=== PATIENT | male | born 1965 | race Caucasian/White ===

== ENCOUNTER → 2019-12-24 15:22 | Outpatient (BNVA) | payer MEDICAID, SELFPAY | PROVIDERS: Visit Provider Nurse Practitioner Family | DX: J11.1 Influenza due to unidentified influenza virus with other respiratory manifestations (principal) | CPT/HCPCS: 87804 ==

== ENCOUNTER → 2020-05-12 14:18 | Outpatient (BNVA) | payer MEDICAID, SELFPAY | PROVIDERS: Visit Provider Family Medicine | DX: Z86.11 Personal history of tuberculosis (principal); R05 Cough; M54.5 Low back pain; M79.7 Fibromyalgia; J32.0 Chronic maxillary sinusitis | CPT/HCPCS: 71046 ==

== ENCOUNTER 2020-05-26 10:55 | Outpatient (CLI) | payer MEDICAID, SELFPAY ==
--- NOTE | 2020-05-26 11:00 | MR_ITS ---
WS: [id number] MRI LUMBAR SPINE NONCONTRAST TECHNIQUE: Sagittal T1, T2 and STIR imaging. Axial T1 and T2 imaging. CLINICAL INFORMATION: R29.898 Other symptoms and signs involving the musculoske... COMPARISON: None. FINDINGS: Mild lumbar curve. No acute compression. Pedicle screw fixation L4-S1 with interbody fusion grafts. M ild disc bulging worse at L2-3. No acute compression fractures. L1-L2: Mild annular bulging. Mild facet arthropathy. Mild right and no significant left foraminal pj rowing. L2-L3: Slight retrolisthesis L2 on L3. Mild disc bulging with moderate central canal stenosis. Modera te facet arthropathy and prominent dorsal epidural fat contributes to stenosis. Impingement on the le ft subarticular recess. Left foraminal protrusion with a small annular fissure impinges the exiting l eft L2 nerve root with moderate left foraminal narrowing. Mild right foraminal narrowing. L3-L4: Mild annular bulging with mild central canal stenosis. Prominent dorsal epidural fat. Right fo raminal protrusion contacts the exiting L3 nerve root with mild to moderate right foraminal narrowing . Left foramen is patent. Moderate facet arthropathy. L4-L5: Prior postoperative changes. Spinal canal is patent. Mild right foraminal narrowing. Moderate facet arthropathy. L5-S1: Prior postoperative changes. Spinal canal and foramen are patent. Visualized pelvic bony structures: Normal. Paravertebral soft tissues: Normal. MR/MR lumbar spine wo con* [id number] IMPRESSION: 1. Moderate central canal stenosis L2-3 due to mild disc bulging and prominent dorsal epidural fat and moderate facet arthropathy. Mild central canal stenosi s L3-L4. 2. Prominent left foraminal protrusion L2-3 with a small annular fissure impin ges the exiting left L2 nerve root with moderate left foraminal narrowing. Agatha elate left L2 nerve root symptoms. 3. Mild to moderate right L3-4 foraminal narrowing with a small right foramina l protrusion. 4. Moderate right L4-5 foraminal narrowing. 5. Spinal canal is patent at the fusion levels.
== END 2020-05-26 10:56 | disposition home or self-care (01) ==
LOC: RADSHAW 11:01
PROVIDERS: PCP Family Medicine; Visit Provider Family Medicine
DX: R29.898 Other symptoms and signs involving the musculoskeletal system (principal); M48.061 Spinal stenosis, lumbar region without neurogenic claudication; M47.816 Spondylosis without myelopathy or radiculopathy, lumbar region; M51.26 Other intervertebral disc displacement, lumbar region
CPT/HCPCS: 72148

== ENCOUNTER → 2020-07-15 09:42 | Outpatient (BNVA) | payer MEDICAID, SELFPAY | PROVIDERS: PCP Family Medicine; Visit Provider Family Medicine | DX: S32.512A Fracture of superior rim of left pubis, initial encounter for closed fracture (principal); S32.592A Other specified fracture of left pubis, initial encounter for closed fracture; I10 Essential (primary) hypertension; Z13.6 Encounter for screening for cardiovascular disorders; Z13.220 Encounter for screening for lipoid disorders; R60.0 Localized edema; M16.12 Unilateral primary osteoarthritis, left hip; W19.XXXA Unspecified fall, initial encounter | CPT/HCPCS: 73502; 80053; 80061; 83880 ==

== ENCOUNTER → 2020-08-13 08:56 | Outpatient (BNVA) | payer MEDICAID, SELFPAY | PROVIDERS: PCP Family Medicine; Referring Provider Family Medicine; Visit Provider Specialist | DX: S32.592D Other specified fracture of left pubis, subsequent encounter for fracture with routine healing (principal); X58.XXXD Exposure to other specified factors, subsequent encounter | CPT/HCPCS: 73502 ==

== ENCOUNTER → 2020-09-11 10:16 | Outpatient (BNVA) | payer MEDICAID, SELFPAY | PROVIDERS: PCP Family Medicine; Referring Provider Family Medicine; Visit Provider Orthopaedic Surgery | DX: M54.9 Dorsalgia, unspecified (principal) | CPT/HCPCS: 72114 ==

== ENCOUNTER 2020-09-28 08:25 | Outpatient (CLI) | payer MEDICAID, SELFPAY ==
--- NOTE | 2020-09-28 08:45 | MR_ITS ---
WS: [id number] MRI LUMBAR SPINE NONCONTRAST TECHNIQUE: Sagittal T1, T2 and STIR imaging. Axial T1 and T2 imaging. 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 No acute compression. Pedicle screw fixation L4-S1 with interbody fusion grafts is unch anged in appearance. No high-grade central canal stenosis.. L1-L2: Slight retrolisthesis L1 on L2. Spinal canal and foramen are patent. Mild facet arthropathy. L2-L3: Slight retrolisthesis L2 on L3. Moderate central canal stenosis with impingement left subartic ular recess. Moderate facet arthropathy with prominent dorsal epidural fat. Small left foraminal prot rusion with moderate left foraminal narrowing impinges the exiting left L2 nerve root. Right foramen is patent. L3-L4: Mild annular bulging. Slight impingement on the right subarticular recess and traversing right L4 nerve root. Small right foraminal protrusion with mild to moderate right foraminal narrowing. Mil d left foraminal narrowing. L4-L5: Interbody fusion graft. Spinal canal is patent. Mild right and no significant left foraminal n arrowing. Mild facet arthropathy. L5-S1: Prior postoperative changes pedicle screw fixation and interbody fusion graft. Mild right grea ter than left bony foraminal narrowing. Facet arthropathy. Visualized pelvic bony structures: Normal. Paravertebral soft tissues: Normal. MR/MR lumbar spine wo con* [id number] IMPRESSION: 1. Mild lumbar curve. Prior postoperative changes pedicle screw fixation with interbody fusion L4-S1 is unchanged in appearance. 2. Moderate central canal stenosis L2-3 with impingement on the left subarticu lar recess with a left foraminal protrusion. Moderate left foraminal narrowing L2-3 is unchanged. 3. Impingement on the right subarticular recess L3-4 with mild to moderate rig ht foraminal narrowing is unchanged.
== END 2020-09-28 08:26 | disposition home or self-care (01) ==
LOC: RADSHAW 08:37
PROVIDERS: PCP Family Medicine; Visit Provider Orthopaedic Surgery
DX: S34.2 Injury of nerve root of lumbar and sacral spine (principal); X58.XXXS Exposure to other specified factors, sequela; M48.061 Spinal stenosis, lumbar region without neurogenic claudication; M51.26 Other intervertebral disc displacement, lumbar region
CPT/HCPCS: 72148

== ENCOUNTER → 2020-11-02 11:19 | Outpatient (BNVA) | payer MEDICAID, SELFPAY | PROVIDERS: PCP Family Medicine; Visit Provider Family Medicine | DX: I10 Essential (primary) hypertension (principal); G89.29 Other chronic pain; Z87.442 Personal history of urinary calculi; J44.9 Chronic obstructive pulmonary disease, unspecified; N40.0 Benign prostatic hyperplasia without lower urinary tract symptoms | CPT/HCPCS: 80048; 81000 ==

== ENCOUNTER → 2020-11-26 09:51 | Outpatient (BNVA) | payer MEDICAID, SELFPAY | PROVIDERS: PCP Family Medicine; Visit Provider Orthopaedic Surgery | DX: Z20.828 Contact with and (suspected) exposure to other viral communicable diseases (principal); M48.061 Spinal stenosis, lumbar region without neurogenic claudication; M54.16 Radiculopathy, lumbar region | CPT/HCPCS: 87635 ==

== ENCOUNTER 2020-11-30 05:36 | Day surgery (SDC) | payer MEDICAID, SELFPAY ==
[2020-11-20 10:41] VITALS: BMI 34.9
--- NOTE | 2020-11-20 10:58 | ANES.PREANE2 ---
Pre-Anesthetic Assessment Pre-Anesthetic Assessment: Height/Weight: Height 1.73 m Weight 104.326 kg Preop Diagnosis: lumbar stenosis Proposed Procedure: Operation Date: 11/30/20 07:00 Proposed Procedures p L2/3 MIS decompression 84617 M48.06(Not Applicable) - Bong Villasenor DO Familial anesthetic complications: None Social: Social History: No alcohol and No tobacco Comment: former etOH Exam: Pre-Anes Outpt Exam: alert, oriented x 3, clear to auscultation bilaterally and regular rate & rhythm Airway: Cervical ROM: WNL MP: 4 Dentition: Partials and Other Pulmonary: Pulmonary: COPD CV/HEM: CV/HEM: HTN : : None reported Hepatic: Hepatic: None reported Musc/skel: Musc/skel: Lower Back Pain Neuropsych: Neuropsych: Neuropathy Comments: Can't stand up d/t nerve damage in back Anesthetic Plan: ASA status: 2 Anesthesia: General Risk of > 500 ml blood loss (7ml/kg in children): No PFSH Anesthesia PFSH: Medical History BPH (benign prostatic hyperplasia) Chronic sinusitis COPD (chronic obstructive pulmonary disease) Hx of tuberculosis Hypertension Impaired mobility and activities of daily living Injury of spinal nerve root Surgical History H/O lithotripsy H/O splenectomy History of back surgery S/P hernia surgery Family History Mother Hypertension Father Hypertension Brother Hypertension Sister Hypertension Social History Smoking and tobacco status: never smoked Second hand smoke exposure: No Alcohol intake: former Year of sobriety/quit date alcohol: 22 Former alcohol use details: 1997 Desire information about alcohol rehabilitation?: No Desire information about substance/drug rehabilitation?: No History of recent travel: No Data Anesthesia Cardiac Studies: No Data to Display
[2020-11-30] VITALS (9 sets, daily range): BP systolic 121–137; BP diastolic 85–99; PULSE 77–88; RESP 8–18; TEMP 36.1–36.2; O2SAT 93–97
--- NOTE | 2020-11-30 | SCC_ITS ---
Procedure Done: Left L2/3 laminectomy with partial facetectomy 12.3 seconds of fluoroscopic guidance, for a cumulative dose of 4.86 mGy, was provided to Dr. Villasenor by the radiology department. C-arm images of the lumbar spine were saved for the patient's permanent record. YEFRI
--- NOTE | 2020-11-30 | XR_ITS ---
WS: [id number] C-ARM RADIOGRAPHS LUMBAR SPINE; 3 IMAGES HISTORY: L2/L3 MIS decompression COMPARISON: 09/28/2020 Intraoperative imaging during decompression. Partially visualized posterior fusion hardware. XR/XR lumbar spine 2-3V* [id number] IMPRESSION: Intraoperative imaging during spine decompression.
[2020-11-30] MEDS: sodium chloride 0.9% 1,000 ML 30 ML IV (06:06)
[2020-11-30] MEDS: gabapentin 300 mg Capsule PO (06:22)
--- NOTE | 2020-11-30 06:37 | P.ANESUD_ITS ---
Pre-Anesthetic Update Pre-Anesthetic Assessment: Date of Surgery/Procedure: 11/30/20 Preop [place] gnosis: lumbar stenosis Proposed Procedure: Operation Date: 11/30/20 07:00 Proposed Procedures p L2/3 MIS decompression 58631 M48.06(Not Applicable) - Bong Villasenor, DO Any changes to Pre-Anesthetic Assessment?: Yes Changes from Pre-Anesthetic Assessment: Patient states he got bed bug bites last week. Surgeon and nurse informed. Denies being currently infested, saying he moved apartments and got a new mattress, but does have bites on his legs Last Intake: Intake Last Liquid Date 11/29/20 Last Liquid Time 20:30 Last Solid Date 11/29/20 Last Solid Time 20:30 Vitals: Oxygen Delivery Me thod 11/30/20 06:17 Exam: Pre-Anes Outpt Exam: alert, oriented x 3, clear to auscultation bilaterally and regular rate & rhythm Cardiac Studies: No Data to Display
--- NOTE | 2020-11-30 06:41 | W.PM.OPSUD ---
Surgery/Procedure H&P Update DATE OF PROCEDURE: November 30, 2020 DATE H&P PERFORMED: 11/10/20 H&P UPDATE INFORMATION: I have reviewed H&P completed within last 30 days, I have examined patient prior to procedure and No changes to prior documentation PREOP DIAGNOSIS: lumbar stenosis PLANNED PROCEDURE: Operation Date: 11/30/20 07:00 Proposed Procedures p L2/3 MIS decompression 95161 M48.06(Not Applicable) - Bong Villasenor DO
--- NOTE | 2020-11-30 08:12 | PM.OP ---
Operative Report Date of procedure: November 30, 2020 Pre-op Diagnosis: lumbar stenosis Post-op diagnosis: same Procedure Done: Left L2/3 laminectomy with partial facetectomy Surgeon: Bong Villasenor Anesthesia: General Estimated blood loss (mL): 5 Condition: stable Disposition: PACU Procedure: Patient is brought to the operative suite. After undergoing anesthesia they are placed in the supine position. All areas of impingement are well padded. Patient is then prepped and draped in the normal sterile fashion. A skin incision is made over the L2/3 level. This is confirmed under c-arm guidance. A series of dilators are passed and the tubular retractor is docked on the L2 lamina. A bovie is used to clear the soft tissue off the lamina and the L 2/3 facet joint. A high speed christofer is then used to perform the laminectomy and take down the medial aspect of the L 2/3 facet joint. A kerrison rongeure was then used to take down the remaining lamina and smooth the edge of the laminectomy up to the point where the ligamentum flavum attaches. Attention was then brought to the medial aspect of the facet joint. The remaining medial aspect of the superior and inferior aspect of the facet joint were taken down with the kerrison from the pedicle of L2 to L 3. The facet joint had significant hypertrophy. Attention was then brought to the Ligamentum Flavum. The ligament was taken down from the lamina of L2 to L3 and out medially to the remaining facet joint. The ligament was significantly thickened. The dura was then exposed. The dura was in good repair. The L2 nerve was then traced with a curette out the L2/3 foramen and found to be adequately decompressed. The L3 nerve was traced with a curette around the L3 pedicle. The lateral recess was opened with a kerrison helping to further decompress the L3 nerve. Wound is then irrigated copiously with saline and surgiflo is used to stop any bleeding. The tubular retractor is removed and the wound is closed with vicryl and monocryl suture. Glue is then used to protect the wound. A sterile dressing is then placed. Patient was then placed in the supine position and transferred to the PACU in stable condition.
--- NOTE | 2020-11-30 08:39 | SUR.PHASEI ---
PT CONTINUES TO SLEEP WITH GOOD RESP EFFORT ORAL AIRWAY IN PLACE, VSS NO DISTRESS NOTED BILAT SCDS ON.
--- NOTE | 2020-11-30 08:46 | SUR.PHASEI ---
PT AWAKE ALERT TALKATIVE, TAKING OCC ICE CHIPS, ON RA TRIAL. VSS.
--- NOTE | 2020-11-30 09:08 | SUR.PHASEI ---
0900 PT TO OPS ROOM HANDOFF AT BEDSIDE, PT AWAKE ALERT , STATES (IT FEELS HARD TO BREATH, I DIDNT BRING MY INHALER FROM HOME) PT BILAT LUNGS CLEAR WITH DIMINISHED BASES. SEE ALBUTEROL NEB STARTED IN OPS PER PT REQUEST. SATS 94% NO DISTRESS NOTED.
[2020-11-30] MEDS: oxyCODONE 5 mg IR Tab/Cap PO (09:18)
--- NOTE | 2020-11-30 11:15 | P.PCN_ITS ---
PACU note PACU note: VSS, Good respiratory effort, report to FIRE EXTINGUISHER SPRINKLER INSPECTOR Post-Anesthesia Exam: awake
--- NOTE | 2020-11-30 11:15 | PM.PACU ---
PACU note PACU note: VSS, Good respiratory effort, report to CLASSROOM COORDINATOR Post-Anesthesia Exam: awake
== END 2020-11-30 10:30 | disposition home or self-care (01) ==
PROVIDERS: PCP Family Medicine; Visit Provider Orthopaedic Surgery
PROC: (CPT 63005; principal; 2020-11-30 07:00)
DX: M48.061 Spinal stenosis, lumbar region without neurogenic claudication (principal); J44.9 Chronic obstructive pulmonary disease, unspecified; I10 Essential (primary) hypertension; N40.0 Benign prostatic hyperplasia without lower urinary tract symptoms
CPT/HCPCS: 63047; 12345; 72100; 76000; J0690; J1100; J2405; J2704; J2710; J3010; J3490; J7030; J7611

== ENCOUNTER → 2020-12-25 09:52 | Outpatient (BNVA) | payer MEDICAID, SELFPAY | PROVIDERS: PCP Family Medicine; Visit Provider Orthopaedic Surgery | DX: Z91.81 History of falling (principal) | CPT/HCPCS: 73502 ==

== ENCOUNTER → 2021-04-08 08:39 | Outpatient (BNVA) | payer MEDICAID, SELFPAY | PROVIDERS: PCP Family Medicine; Visit Provider Orthopaedic Surgery | DX: M71.352 Other bursal cyst, left hip (principal); Z48.89 Encounter for other specified surgical aftercare; S32.592S Other specified fracture of left pubis, sequela; X58.XXXS Exposure to other specified factors, sequela; M16.0 Bilateral primary osteoarthritis of hip | CPT/HCPCS: 73502 ==

== ENCOUNTER → 2021-07-09 15:16 | Outpatient (BNVA) | payer MEDICAID, SELFPAY | PROVIDERS: PCP Family Medicine; Visit Provider Emergency Medicine | DX: Z86.19 Personal history of other infectious and parasitic diseases (principal); M48.061 Spinal stenosis, lumbar region without neurogenic claudication; M54.16 Radiculopathy, lumbar region; M54.42 Lumbago with sciatica, left side; G89.29 Other chronic pain; M25.559 Pain in unspecified hip | CPT/HCPCS: 80053; 80074 ==

== ENCOUNTER → 2021-11-02 15:55 | Outpatient (BNVA) | payer MEDICAID, SELFPAY | PROVIDERS: PCP Family Medicine; Visit Provider Orthopaedic Surgery | DX: M54.50 Low back pain, unspecified (principal); Z98.1 Arthrodesis status | CPT/HCPCS: 72100 ==

== ENCOUNTER → 2021-12-13 08:08 | Outpatient (BNVA) | payer MEDICAID, SELFPAY | PROVIDERS: PCP Family Medicine; Visit Provider Internal Medicine Rheumatology | DX: M05.79 Rheumatoid arthritis with rheumatoid factor of multiple sites without organ or systems involvement (principal); Z79.899 Other long term (current) drug therapy; M48.061 Spinal stenosis, lumbar region without neurogenic claudication; M54.16 Radiculopathy, lumbar region; Z86.15 Personal history of latent tuberculosis infection; Z96.89 Presence of other specified functional implants; Z71.85 Encounter for immunization safety counseling | CPT/HCPCS: 99204; 99244 ==

== ENCOUNTER 2021-12-13 11:27 | Outpatient (CLI) | payer MEDICAID, SELFPAY ==
--- NOTE | 2021-12-13 11:42 | XRR_ITS ---
PROCEDURE INFORMATION: Exam: XR Left Hand Exam date and time: 12/13/2021 11:42 AM Age: 56 years old Clinical indication: Pain; Hand; Bilateral; Additional info: Z79.899 - other detention (current) drug therapy TECHNIQUE: Imaging protocol: XR Left hand. Views: 3 or more views. COMPARISON: No relevant prior studies available. FINDINGS: Bones/joints: Chronic fracture deformity is seen in the distal metaphysis of the 5th metacarpal corresponding to a healed boxer fracture. Soft tissues: Normal. XR/XR hand LT min 3V* [id number] IMPRESSION: 1. No acute findings. 2. Healed boxer fracture 5th metacarpal
--- NOTE | 2021-12-13 11:42 | XRR_ITS ---
PROCEDURE INFORMATION: Exam: XR Right Hand Exam date and time: 12/13/2021 11:42 AM Age: 56 years old Clinical indication: Pain; Hand; Bilateral; Additional info: Z79.899 - other halfway (current) drug therapy TECHNIQUE: Imaging protocol: XR Right hand. Views: 3 or more views. COMPARISON: No relevant prior studies available. FINDINGS: Bones/joints: Normal. Soft tissues: Normal. XR/XR hand RT min 3V* [id number] IMPRESSION: No acute findings.
--- NOTE | 2021-12-13 11:42 | XRR_ITS ---
PROCEDURE INFORMATION: Exam: XR Right Foot Exam date and time: 12/13/2021 11:42 AM Age: 56 years old Clinical indication: Pain; Foot; Bilateral; Additional info: Z79.899 - other detention (current) drug therapy TECHNIQUE: Imaging protocol: XR Right foot. Views: 3 or more views. COMPARISON: No relevant prior studies available. FINDINGS: Bones/joints: Normal. Soft tissues: Normal. XR/XR foot RT min 3V* [id number] IMPRESSION: No acute findings.
--- NOTE | 2021-12-13 11:42 | XRR_ITS ---
PROCEDURE INFORMATION: Exam: XR Left Foot Exam date and time: 12/13/2021 11:42 AM Age: 56 years old Clinical indication: Pain; Foot; Bilateral; Additional info: Z79.899 - other [facility] (current) drug therapy TECHNIQUE: Imaging protocol: XR Left foot. Views: 3 or more views. COMPARISON: No relevant prior studies available. FINDINGS: Bones/joints: Normal. Soft tissues: Normal. XR/XR foot LT min 3V* [id number] IMPRESSION: No acute findings.
--- NOTE | 2021-12-13 11:42 | XRR_ITS ---
PROCEDURE INFORMATION: Exam: XR Chest Exam date and time: 12/13/2021 11:42 AM Age: 56 years old Clinical indication: Other: Joint pain; Additional info: Z79.899 - other roasterman (current) drug therapy TECHNIQUE: Imaging protocol: XR of the chest. Views: 2 views. COMPARISON: CR XR chest 2V* [id number] 05/12/2020 2:27 PM FINDINGS: Lungs: Unremarkable. No consolidation. Pleural spaces: Unremarkable. No pleural effusion. No pneumothorax. Heart/Mediastinum: Unremarkable. No cardiomegaly. Bones/joints: Unremarkable. XR/XR chest 2V* [id number] IMPRESSION: No acute findings.
[2021-12-13 12:29] LABS: Basophils # 0.1 10^3/uL (0.0-0.1); Basophils % 0.4 %; Eosinophils # 0.2 10^3/uL (0.0-0.8); Eosinophils % 2.1 %; Hematocrit 52.4 % (42.0-52.0); Hemoglobin 17.4 g/dL (11.7-16.6); Lymphocytes # 3.8 10^3/uL (0.8-4.8); Lymphocytes % 34.4 %; Mean Corpuscular HGB Conc 33.2 g/dL (30.0-36.0); Mean Corpuscular Hemoglobin 28.6 pg (28.0-34.0); Mean Corpuscular Volume 86.2 fl (80-94); Mean Platelet Volume 9.9 fL (7.4-10.4); Monocytes # 1.2 10^3/uL (0.2-0.9); Monocytes % 10.9 %; Neutrophils # 5.77 10^3/uL (1.8-7.7); Neutrophils % 51.8 %; Nucleated Red Blood Cells % 0 %; Platelet Count 363 10^3/cmm (130-400); Red Blood Count 6.08 10^6/uL (4.1-5.3); Red Cell Distribution Width 14.1 % (12.1-15.1); White Blood Count 11.2 10^3/uL (4.0-10.0)
[2021-12-13 13:14] LABS: Erythrocyte Sedimentation Rate 3 mm/hr (0-10)
[2021-12-13 13:24] LABS: Alanine Aminotransferase 30 U/L (0-41); Albumin Level 4.8 g/dL (3.5-5.2); Alkaline Phosphatase 64 IU/L (40-130); Aspartate Amino Transferase 18 U/L (0-40); Globulin 2.6 g/dL (1.3-4.6); Total Bilirubin 0.4 mg/dL (0.15-1.2); Total Protein 7.4 g/dL (6.6-8.7)
[2021-12-13 14:19] LABS: Hepatitis C Virus Antibody Non-Reactive (Nonreactive)
[2021-12-13 16:05] LABS: Hepatitis B Surface Antigen Non-Reactive (Nonreactive)
[2021-12-13 17:07] LABS: Hepatitis B Core AB, Total Reactive (Nonreactive)
[2021-12-13 17:46] LABS: 25 Hydroxy Vitamin D 24 ng/mL (30-100)
[2021-12-14 14:32] LABS: Cyclic Citrullinated Peptide <16 UNITS
[2021-12-15 16:17] LABS: Anti-Nuclear Antibody Pattern Nuclear, Speckled; Anti-Nuclear Antibody Screen POSITIVE (NEGATIVE); Anti-Nuclear Antibody Titer 1:40 titer
== END 2021-12-13 11:28 | disposition home or self-care (01) ==
LOC: RAD 11:36
PROVIDERS: PCP Family Medicine; Visit Provider Internal Medicine Rheumatology
DX: M19.90 Unspecified osteoarthritis, unspecified site (principal); Z79.899 Other long term (current) drug therapy; Z11.59 Encounter for screening for other viral diseases
CPT/HCPCS: 71046; 73130; 73630; 80076; 82306; 82565; 85025; 85651; 86038; 86140; 86200; 86431; 86704; 86803; 87340

== ENCOUNTER 2022-01-31 08:46 | Outpatient (CLI) | payer MEDICAID, SELFPAY ==
--- NOTE | 2022-01-31 09:30 | IR_ITS ---
WS: [id number] LUMBAR MYELOGRAM HISTORY: M54.42 - Lumbago with sciatica, left side COMPARISON: Lumbar spine 11/02/2021. FLUOROSCOPY TIME: 1.7 minutes. # Of spot films: 7 Procedure, risks and complications were explained to the patient. Risks including bleeding, infection , headaches, allergic reaction and seizures. Consent has been obtained. With the patient in prone position the skin over the lumbar region is cleansed with ChloraPrep and an esthetized with lidocaine. 22-gauge spinal needle is inserted into the thecal sac at the appropriate level determined by fluoroscopy. Omnipaque 240; 12 ml is injected slowly under fluoroscopy with no co mplications. Needle bevel is perpendicular to the longitudinal fibers of the dura. Stylet is reinsert ed prior to removal of the needle. Patient tolerated the procedure well. Patient will proceed to CT f or further evaluation. Patient is status post bilateral posterior lumbar fusion from L4 to S1. Interbody spacers at L4-5 and L5-S1. Very mild loss of disc space height at L4-5 and L5-S1. No fractures are identified within the hardware. Contrast column terminates on the AP film at the L4 level but this is due to curvature of the spine. There are mild extrinsic defects along the ventral thecal sac throughout the lumbar spine. 2 mm retrolisthesis of L3. With flexion and extension very little movement of the vertebral bodies. The retrolisthesis of L3 similar to study from 11/02/2021. No lucency around the pedicle screws. IR/IR myelogram sp lumbar [id number] IMPRESSION: 1. Status post uncomplicated lumbar myelogram. 2. Prior lumbar fusion from L4 to S1 with interbody spacers at L4-5 and L5-S1. 3. No high-grade stenosis identified. Please see lumbar myelogram CT report to follow. 4. 2 mm retrolisthesis of L3 without instability.
--- NOTE | 2022-01-31 10:00 | CT_ITS ---
WS: [id number] CT MYELOGRAM LUMBAR SPINE HISTORY: M54.50 - Low back pain, unspecified TECHNIQUE: Contiguous 2.5 mm axial imaging performed from T12 through the mid sacral level. Bone and soft tissue windows reviewed. Sagittal and coronal reformats are submitted and reviewed. DLP: 134.70 mGy-cm. All CT scans at [facility] use at least one of these dose optimization techniques: automated e xposure control; mA and/or kV adjustment per patient size (includes targeted exams where dose is matc hed to clinical indication); or iterative reconstruction. COMPARISON: None available. Good injection of the thecal sac with the contrast. Status post posterior lumbar fusion from L4-S1 bi laterally. No lucency around the pedicle screws. Interbody spacers at L4-5 and L5-S1. LEFT laminectom y defect at L4-5 and bilaterally at L5-S1. No lumbar spine fractures. Facet joint arthritis throughou t the lumbar spine but greatest at L4-5 and L5-S1. There is very mild widening of the facet joints at L2-3 and L3-4. L1-L2: Mild annular disc bulge without a focal protrusion. Mild bilateral facet joint arthritis and f oraminal narrowing. L2-L3: Slight retrolisthesis of L2 with diffuse annular disc bulging asymmetric to the LEFT. Mild lig amentum flavum hypertrophy and facet arthritis. Moderate LEFT and mild RIGHT foraminal stenosis. Ther e is very mild disc contact on the LEFT exiting L2 nerve root. Mild narrowing of the central canal. L3-L4: Retrolisthesis of L3 with moderate annular disc bulging. There is a very small LEFT paracentra l disc protrusion contacting the LEFT lateral thecal sac. There is slight contact on the traversing L 4 nerve root. Mild ligamentum flavum hypertrophy and facet arthritis. Disc extends into the foramina bilaterally. Effacement of fat bilaterally. Mild central and bilateral subarticular recess stenosis w ith moderate bilateral foraminal stenosis. Far lateral disc bulging or protrusions contacting both L3 nerve roots. L4-L5: Mildly patulous thecal sac. Osteophytic ridging and facet joint arthritis. No focal protrusion s. No stenosis. L5-S1: Patulous thecal sac. Very shallow central and LEFT paracentral disc protrusion. Very slight co ntact upon the thecal sac but no displacement of the nerve roots. Small foraminal osteophytes on the RIGHT. Scattered calcified plaque in aorta and iliac arteries. Mild degenerative changes involving the SI lacey ints bilaterally. CT/CT lumbar spine wo/w con [id number] IMPRESSION: 1. Status post posterior lumbar fusion from L4 to S1. Pedicle screws are intac t and interbody spacers at L4-5 and L5-S1 are stable. 2. Mild central and bilateral subarticular recess at L3-4 with moderate bilate ral foraminal stenosis at L3-4. Far lateral disc protrusions or bulging contact ing the L3 nerve roots. Small LEFT paracentral disc protrusion at L3-4 contacts the traversing L4 nerve root. 3. Moderate LEFT and mild RIGHT foraminal stenosis at L2-3 with mild central s tenosis. Mild disc contact on the LEFT exiting L2 nerve root. 4. Very small central to LEFT paracentral disc protrusion at L5-S1.
[2022-01-31] MEDS: iohexol 240 mg/mL 50 mL Btl INTRA-ARTI (10:59)
== END 2022-01-31 08:47 | disposition home or self-care (01) ==
LOC: RAD 08:48
PROVIDERS: PCP Family Medicine; Visit Provider Orthopaedic Surgery
DX: M54.42 Lumbago with sciatica, left side (principal); G89.29 Other chronic pain; M43.27 Fusion of spine, lumbosacral region; M51.27 Other intervertebral disc displacement, lumbosacral region; M48.061 Spinal stenosis, lumbar region without neurogenic claudication
CPT/HCPCS: 62304; 72120; 72133

== ENCOUNTER → 2022-02-24 14:47 | Outpatient (BNVA) | payer MEDICAID, SELFPAY | PROVIDERS: PCP Family Medicine; Visit Provider Orthopaedic Surgery | DX: M48.061 Spinal stenosis, lumbar region without neurogenic claudication (principal); M54.16 Radiculopathy, lumbar region | CPT/HCPCS: 99214 ==

== ENCOUNTER → 2022-03-07 09:16 | Outpatient (BNVA) | payer MEDICAID, SELFPAY | PROVIDERS: PCP Nurse Practitioner; Referring Provider Orthopaedic Surgery; Visit Provider Anesthesiology Pain Medicine | DX: G89.29 Other chronic pain (principal); M54.42 Lumbago with sciatica, left side; M48.061 Spinal stenosis, lumbar region without neurogenic claudication; M54.16 Radiculopathy, lumbar region; M43.26 Fusion of spine, lumbar region; M47.816 Spondylosis without myelopathy or radiculopathy, lumbar region; M05.79 Rheumatoid arthritis with rheumatoid factor of multiple sites without organ or systems involvement; M79.604 Pain in right leg; M79.605 Pain in left leg; Z74.09 Other reduced mobility | CPT/HCPCS: 99204 ==

== ENCOUNTER → 2022-03-14 12:12 | Outpatient (BNVA) | payer MEDICAID, SELFPAY | PROVIDERS: PCP Nurse Practitioner; Visit Provider Anesthesiology Pain Medicine | DX: M54.16 Radiculopathy, lumbar region (principal); G89.29 Other chronic pain | CPT/HCPCS: 64483; 64484; J1100; J3490 ==

== ENCOUNTER → 2022-03-30 13:14 | Outpatient (BNVA) | payer MEDICAID, SELFPAY | PROVIDERS: PCP Nurse Practitioner; Visit Provider Anesthesiology Pain Medicine | DX: G89.29 Other chronic pain (principal); M54.16 Radiculopathy, lumbar region; M54.42 Lumbago with sciatica, left side | CPT/HCPCS: 64483; 64484; J1100; J3490 ==

== ENCOUNTER → 2022-03-31 12:44 | Outpatient (BNVA) | payer MEDICAID, SELFPAY | PROVIDERS: PCP Nurse Practitioner; Visit Provider Orthopaedic Surgery | DX: M54.42 Lumbago with sciatica, left side (principal) | CPT/HCPCS: 99213 ==

== ENCOUNTER → 2022-06-27 10:20 | Outpatient (BNVA) | payer MEDICAID, SELFPAY | PROVIDERS: PCP Nurse Practitioner; Visit Provider Internal Medicine Rheumatology | DX: M06.041 Rheumatoid arthritis without rheumatoid factor, right hand (principal); M06.042 Rheumatoid arthritis without rheumatoid factor, left hand; Z79.899 Other long term (current) drug therapy; M47.816 Spondylosis without myelopathy or radiculopathy, lumbar region; Z71.85 Encounter for immunization safety counseling; M15.9 Polyosteoarthritis, unspecified; Z86.15 Personal history of latent tuberculosis infection; Z98.890 Other specified postprocedural states; Z96.89 Presence of other specified functional implants | CPT/HCPCS: 36415; 80076; 82565; 85025; 86140; 99214 ==

== ENCOUNTER → 2022-07-14 09:10 | Outpatient (BNVA) | payer MEDICAID, SELFPAY | PROVIDERS: PCP Nurse Practitioner; Visit Provider Anesthesiology Pain Medicine | DX: G89.29 Other chronic pain (principal); M54.42 Lumbago with sciatica, left side; M48.061 Spinal stenosis, lumbar region without neurogenic claudication; M54.16 Radiculopathy, lumbar region; M43.26 Fusion of spine, lumbar region; M47.816 Spondylosis without myelopathy or radiculopathy, lumbar region; M05.79 Rheumatoid arthritis with rheumatoid factor of multiple sites without organ or systems involvement; M79.604 Pain in right leg; M79.605 Pain in left leg | CPT/HCPCS: 99213; 99214 ==

== ENCOUNTER → 2022-10-04 09:12 | Outpatient (BNVA) | payer MEDICAID, SELFPAY | PROVIDERS: PCP Nurse Practitioner; Visit Provider Orthopaedic Surgery | DX: M43.26 Fusion of spine, lumbar region (principal); Z98.1 Arthrodesis status | CPT/HCPCS: 72110; 99214 ==

== ENCOUNTER 2023-04-06 14:12 | Outpatient (CLI) | payer MEDICAID, SELFPAY ==
--- NOTE | 2023-04-06 15:15 | MR_ITS ---
WS: [id number] MRI LUMBAR SPINE NONCONTRAST HISTORY: Spinal stenosis. Bilateral lower extremity pain. Prior surgeries. COMPARISON: 09/28/2020 TECHNIQUE: Sagittal and axial multisequence imaging is submitted. Mild thoracolumbar scoliosis. Posterior lumbar fusion from L4 to S1. No fractures or marrow edema. Marked disc space narrowing with interbody fusions at L4-5 and also at L5-S1. Disc spaces are otherwise moderately desiccated. No acute fracture. Conus terminates normally at L1-2 disc level. L1-L2: Very slight retrolisthesis of L1. Mild facet arthritis. No high-grade stenosis. L2-L3: Slight retrolisthesis of L2. Annular disc bulging with a LEFT foraminal disc protrusion. Moder ate central stenosis described on the prior study has progressed. Increasing effacement of CSF. Ligam entum flavum and facet arthritis. LEFT foraminal disc protrusion with moderate foraminal narrowing. T here is contact upon the exiting LEFT L2 nerve root. Since the prior study there does appear to be a very small LEFT hemilaminectomy defect. Moderate LEFT and mild RIGHT foraminal stenosis. L3-L4: Marked annular disc bulging with a central disc protrusion encroaching upon the ventral thecal sac and the subarticular recesses. RIGHT foraminal disc protrusion is unchanged. Moderate bilateral foraminal stenosis, RIGHT greater than LEFT. Mild subarticular recess encroachment. L4-L5: No stenosis. Very mild RIGHT foraminal narrowing. L5-S1: Mild facet arthritis. No significant stenosis. Small foraminal osteophytes. Paravertebral soft tissues are normal. Mild arachnoiditis. Nerve roots are becoming clumped within th e thecal sac below the L2-3 level. MR/MR lumbar spine wo con* [id number] IMPRESSION: 1. Status post posterior lumbar fusion from L4 to S1. Interbody graft fusions at L4-5 and L5-S1. 2. Small LEFT hemilaminectomy defect at L2-3. 3. Moderate central stenosis at L2-3 has progressed since the prior exam. Incr easing effacement of CSF and contact on the ventral thecal sac. 4. LEFT foraminal disc protrusion at L2-3 with moderate foraminal stenosis. Mi ld RIGHT foraminal stenosis. 5. Central disc protrusion encroaching upon the ventral thecal sac at L3-4 and subarticular recess encroachment. Mild progression since the prior study. 6. RIGHT foraminal disc protrusion at L3-4. Moderate bilateral foraminal steno sis, RIGHT greater than LEFT.
== END 2023-04-06 14:13 | disposition home or self-care (01) ==
PROVIDERS: PCP Nurse Practitioner; Visit Provider Orthopaedic Surgery
DX: M48.061 Spinal stenosis, lumbar region without neurogenic claudication (principal); M54.16 Radiculopathy, lumbar region; M43.26 Fusion of spine, lumbar region; M54.42 Lumbago with sciatica, left side; G89.29 Other chronic pain
CPT/HCPCS: 72148